=== PATIENT | male | born 1935 | race Caucasian/White ===

== ENCOUNTER 2016-08-13 11:06 | Emergency (ER) | payer MEDICARE, BC ==
[2016-08-13 11:55] LABS: HEMOGLOBIN 15.4 gm/dl (14.0-17.5); RED BLOOD COUNT 4.7 M/UL (4.20-5.50); WHITE BLOOD COUNT 6.9 K/UL (4.5-11.0)
[2016-08-13 12:22] LABS: BUN/CREATININE RATIO 28 (0-10)
== END 2016-08-13 13:20 | disposition home or self-care (01) ==
LOC: ER1 11:06
PROVIDERS: Emergency Medicine
DX: I49.3 Ventricular premature depolarization (principal)
CPT/HCPCS: 36415; 71010; 80053; 82550; 82553; 83735; 83874; 84443; 84484; 85025; 93005; 99285

== ENCOUNTER 2016-09-19 10:30 | Emergency (ER) | payer MEDICARE, BC ==
[2016-09-19 12:30] LABS: HEMOGLOBIN 15.7 gm/dl (14.0-17.5); RED BLOOD COUNT 4.84 M/UL (4.20-5.50); WHITE BLOOD COUNT 7.2 K/UL (4.5-11.0)
[2016-09-19 12:48] LABS: BUN/CREATININE RATIO 29 (0-10)
== END 2016-09-19 17:00 | disposition home or self-care (01) ==
LOC: ER1 10:30
PROVIDERS: Emergency Medicine
DX: M79.1 Myalgia (principal)
CPT/HCPCS: 73502; 80053; 82550; 82553; 83690; 83874; 84484; 85025; 93926; 93970; 96360; 96361; 99283; J7030

== ENCOUNTER → 2016-09-30 | Outpatient (CLI) | payer MEDICARE, BC | LOC: HEART 5 08-13 08:00 | DX: M79.606 Pain in leg, unspecified (principal); R29.898 Other symptoms and signs involving the musculoskeletal system ==

== ENCOUNTER 2020-07-21 17:16 | Emergency (ER) | payer MEDICARE, BC ==
[~2020-07-21 17:16] MED LIST: ASPIR 8181 MG PO; BACTROBAN OINT22 GM EXT; CYCLOBENZAPRINE10 MG PO; FLOMAX0.4 MG PO; IMDUR ER TAB 3030 MG PO; LOPRESSOR 25 MG25 MG PO; LYRICA50 MG PO; NORVASC10 MG PO; OMEGA 3 FISH O1 EACH PO; VITAMIN B-122500 MCG SL; VITAMIN D32000 UNI1 PO; VOLTAREN EC 5050 MG PO; ZOCOR20 MG PO
[2020-07-21 20:25] LABS: HEMOGLOBIN 15.3 gm/dl (14.0-17.5); RED BLOOD COUNT 4.71 M/UL (4.20-5.50); WHITE BLOOD COUNT 6.9 K/UL (4.5-11.0)
[2020-07-21 20:44] LABS: BUN/CREATININE RATIO 27 (0-10)
== END 2020-07-22 00:04 | disposition home or self-care (01) ==
LOC: ER1 17:16
PROVIDERS: Family Medicine
DX: N32.0 Bladder-neck obstruction (principal); Z79.899 Other long term (current) drug therapy
CPT/HCPCS: 36415; 80053; 81001; 82550; 82553; 83690; 84484; 85025; 99284